=== PATIENT | female | born 2000 | race Caucasian/White ===

== ENCOUNTER 2019-02-16 22:08 | Emergency (ER) | payer OTHER ==
[~2019-02-16] VITALS: Ht 180.3 cm; Wt 113.4 kg
[~2019-02-16 22:08] MED LIST: ALBU0.0967 IH
[2019-02-16 22:22] VITALS: BP 151/77
[2019-02-16] MEDS ORDERED: AMOXIL/CLAVULANATE 875/125 MG 1 TAB PO ONE (23:05)
[2019-02-16] MEDS ORDERED: HYDROcodone/APAP 5/325 MG 1 TAB TAB PO ONE (23:10)
[2019-02-16] MEDS ORDERED: ONDANSETRON 4 MG ODT PO ONE (23:10)
[2019-02-16] MEDS ORDERED: AMOXIL/CLAVULANATE 875/125 MG 1 TAB ONE (23:36)
[2019-02-16 23:42] VITALS: BP 116/73
== END 2019-02-16 23:42 | disposition home or self-care (01) ==
LOC: MED 22:08
DX: L08.9 Local infection of the skin and subcutaneous tissue, unspecified (principal); J45.909 Unspecified asthma, uncomplicated; Z79.899 Other long term (current) drug therapy
CPT/HCPCS: 99284; Q0162

== ENCOUNTER 2020-05-26 18:30 | Emergency (ER) | payer OTHER ==
[~2020-05-26] VITALS: Ht 177.8 cm; Wt 113.4 kg
[2020-05-26 18:41] VITALS: BP 126/71
--- NOTE | 2020-05-26 18:47 | NUR ---
Boone peter in [facility] - 05/26/20 at 1847 by [id number] [id number]
--- NOTE | 2020-05-26 18:47 | NUR ---
PT AMB TO BED 9
[2020-05-26] MEDS ORDERED: ACETAMINOPHEN EXTRA STRENGTH 500 MG TAB PO ONE (18:50)
--- NOTE | 2020-05-26 18:56 | NUR ---
C/O FEVER, COUGH, SOB , BODY ACHES X 3 DAYS, N/V/D X 2 DAYS, LASS OF TASTE/SMELL X 1 WEEK. O2 SAT 96%, ORAL TEMP 102.9, P 119, R 26, BP 126/71 AT THIS TIME. PMH: ASTHMA
--- NOTE | 2020-05-26 19:20 | NUR ---
RECEIVED REPORT FOR TRAE ROYAL, FOR CONTINUATION OF CARE AT THIS TIME.
--- NOTE | 2020-05-26 19:20 | NUR ---
REPORT GIVEN TO FREDDY ROYAL, TRANSFER OF CARE AT THIS TIME.
--- NOTE | 2020-05-26 19:25 | NUR ---
JHOANA THIBODEAUX AT BEDSIDE FOR MEDICAL EVALUATION
[2020-05-26] MEDS ORDERED: KETOROLAC 30 MG/ML VIAL IVP ONE (19:30)
[2020-05-26] MEDS ORDERED: NACL 0.9% 1,000 ML IV ONE (19:30)
[2020-05-26] MEDS ORDERED: ONDANSETRON 4 MG/2 ML VIAL IVP ONE (19:30)
--- NOTE | 2020-05-26 19:30 | NUR ---
PT CONNECTED TO THE SALES AND SERVICE ADVISOR. SAO2@95% RA. PT IS SITTING UPRIGHT IN BED AND POSITIONED FOR COMFORT. BED IS LOCKED AND IN LOWEST POSITION. SIDE RAILSX1. PT IS NOT IN ANY ACUTE DISTRESS AT THIS TIME.
--- NOTE | 2020-05-26 19:49 | NUR ---
18G IV NITIATED IN THE LEFT AC. NS FLUIDS RUNNING AT 100 ML/HR PER ERMD ORDERS
--- NOTE | 2020-05-26 20:00 | NUR ---
PCR SWAB COLLECTED
--- NOTE | 2020-05-26 20:05 | NUR ---
PT PROVIDED WITH WATER PER REQUEST, TOLERATED WELL.
--- NOTE | 2020-05-26 21:00 | NUR ---
PT IS SITTING IN UPRIGHT POSITION. SIDE RAILSX1. BED IS LOCKED AND IN LOWEST POSITION. PT IS CONNECTED TO THE SPORTS MEDICINE PHYSICIAN. SAO2@96% RA. NO ACUTE DISTRESS NOTED. NO NEW ORDERS AT THIS TIME.
[2020-05-26 21:38] VITALS: BP 126/71
--- NOTE | 2020-05-26 21:38 | NUR ---
Patient discharged with v/s stable. Written and verbal after care instructions given and explained. Patient alert, oriented and verbalized understanding of instructions. Ambulatory with steady gait. All questions addressed prior to discharge. ID band removed. Patient advised to follow up with PMD. Rx of ZOFRAN, MOTRIN, ALBUTEROL given. Patient educated on indication of medication including possible reaction and side effects. Opportunity to ask questions provided and answered.
--- NOTE | 2020-05-27 13:40 | NUR ---
Covid results received from lab. Results = Positive. Hard copy requested from lab and placed in infection controls mailbox.
== END 2020-05-26 21:38 | disposition home or self-care (01) ==
LOC: MED 18:30
DX: U07.1 COVID-19 (principal); J45.909 Unspecified asthma, uncomplicated; Z79.899 Other long term (current) drug therapy
CPT/HCPCS: 96361; 96374; 96375; 99284; J1885; J2405; U0003; J7030

== ENCOUNTER 2020-09-16 02:21 | Emergency (ER) | payer SELFPAY ==
[~2020-09-16] VITALS: Ht 177.8 cm; Wt 97.5 kg
[2020-09-16 02:28] VITALS: BP 150/91
--- NOTE | 2020-09-16 02:34 | NUR ---
To ED bed 12.
--- NOTE | 2020-09-16 02:45 | NUR ---
19 Y/O FEMALE C/O VAGINAL PAIN FOR 1 WEEK. PT STATES 10/10 BURNING AND IRRITATION CONSTANT PAIN. PT STATES REDNESS AND WHITE YEAST IN THE VAGINAL AND RECTAL AREA. PT STATES SHE IS SEXUALLY ACTIVE. RX: TYLENOL WITH NO RELIEF MEDHX: ASTHMA NKA
--- NOTE | 2020-09-16 02:45 | NUR ---
URINE SAMPLE HANDED TO CPT BLAISE
[2020-09-16 03:02] LABS: APPEARANCE,URINE CLEAR (CLEAR); BILIRUBIN,URINE NEGATIVE (NEGATIVE); BLOOD, URINE 1+ (NEGATIVE); COLOR,URINE YELLOW (YELLOW); LEUKOCYTE ESTERASE ,URINE TRACE (NEGATIVE); NITRITE, URINE NEGATIVE (NEGATIVE); UGLUCOSE 3+ (NEGATIVE)
--- NOTE | 2020-09-16 03:11 | NUR ---
Dr. Travis examining patient.
--- NOTE | 2020-09-16 03:15 | NUR ---
Visual vaginal exam performed by DR BACA with Babatunde ROYAL at bedside for entire examination. Patient tolerated procedure well. Patient assisted to position of comfort after examination.
[2020-09-16 03:24] LABS: RBC,URINE 0-5 /HPF (0-5)
[2020-09-16] MEDS ORDERED: CEPH-588 PO ×2 (03:52→05:10)
[2020-09-16] MEDS ORDERED: FLUC100T6 PO ×2 (03:52→05:10)
[2020-09-16] MEDS ORDERED: cefTRIAXone 1,000 MG VIAL ONE (03:58)
[2020-09-16] MEDS ORDERED: LIDOCAINE MPF 1% 5 ML ONE (03:59)
[2020-09-16] MEDS ORDERED: cefTRIAXone 1,000 MG in LIDOCAINE MPF 1% 2.1 ML INJ SCH (04:00)
[2020-09-16] MEDS ORDERED: FLUCONAZOLE 100 MG TAB PO SCH (04:00)
[2020-09-16] MEDS ORDERED: IBUPROFEN 800 MG TAB PO SCH (04:00)
[2020-09-16] MEDS ORDERED: INSULIN REGULAR, HUMAN 100 UNIT/ML VIAL SUBQ ONE (04:15)
--- NOTE | 2020-09-16 04:30 | NUR ---
LAB AT BEDSIDE
[2020-09-16 04:42] LABS: BASOPHILS # (AUTO) 0.1 K/uL (0.00-0.22); BASOPHILS % (AUTO) 0.9 % (0.0-2.0); EOSINOPHILS # (AUTO) 0.1 K/uL (0-0.4); EOSINOPHILS % (AUTO) 1.7 % (0.0-4.0); HEMATOCRIT 35.9 % (36-48); HEMOGLOBIN 11.7 g/dL (12.0-16.0); LYMPHOCYTES # (AUTO) 2.4 K/uL (2.5-16.5); LYMPHOCYTES % (AUTO) 32.4 % (20.5-51.1); MEAN CORPUSCULAR HEMOGLOBIN 25 pg (27-31); MEAN CORPUSCULAR HGB CONC 33 g/dL (33-37); MEAN CORPUSCULAR VOLUME 76.6 fL (80-94); MONOCYTES # (AUTO) 0.5 K/uL (0.8-1.0); MONOCYTES % (AUTO) 7.4 % (1.7-9.3); NEUTROPHILS # (AUTO) 4.3 K/uL (1.8-7.7); NEUTROPHILS % (AUTO) 57.6 % (42.2-75.2); PLATELET COUNT (AUTO) 263 K/uL (140-450); RED BLOOD CELL COUNT(AUTO) 4.68 MIL/uL (4.20-5.40); RED CELL DISTRIBUTION WIDTH 16.3 % (11.6-13.7); WHITE BLOOD COUNT (AUTO) 7.4 K/uL (4.8-10.8)
[2020-09-16 04:58] LABS: ALBUMIN 3.8 g/dL (3.4-5.0); ANION GAP 14.4 (8-16); CARBON DIOXIDE 25.3 mmol/L (21-32); CREATININE 0.7 mg/dL (0.6-1.3); POTASSIUM 3.7 mmol/L (3.5-5.1); TOTAL BILIRUBIN 0.5 mg/dL (0.0-1.0)
[2020-09-16] MEDS ORDERED: METF500S6 PO (05:09)
[2020-09-16 05:22] VITALS: BP 150/91
--- NOTE | 2020-09-16 05:22 | NUR ---
Patient discharged with v/s stable. Written and verbal after care instructions given and explained. Patient alert, oriented and verbalized understanding of instructions. Ambulatory with steady gait. All questions addressed prior to discharge. ID band removed. Patient advised to follow up with PMD. Rx of KEFLEX, FLUCONAZOLE, AND METFORMIN given. Patient educated on indication of medication including possible reaction and side effects. Opportunity to ask questions provided and answered.
== END 2020-09-16 05:22 | disposition home or self-care (01) ==
LOC: MED 02:21
DX: B34.9 Viral infection, unspecified (principal); N39.0 Urinary tract infection, site not specified; J45.909 Unspecified asthma, uncomplicated; Z79.899 Other long term (current) drug therapy
CPT/HCPCS: 36415; 80053; 81001; 81025; 85025; 87086; 87491; 96372; 99284; J0696; J1815; J2001

== ENCOUNTER 2020-10-20 00:07 | Inpatient (IN) | payer MEDICAID ==
[~2020-10-20] VITALS: Ht 172.7 cm; Wt 121.6 kg
[2020-10-20] VITALS (16 sets, daily range): BP systolic 104–162; BP diastolic 37–115
[~2020-10-20 00:07] MED LIST changes: +CEPH-588 PO; +FLUC100T6 PO; +METF500S6 PO
[2020-10-20] MEDS ORDERED: KETOROLAC 30 MG/ML VIAL IVP ONE (00:20)
[2020-10-20] MEDS ORDERED: NACL 0.9% 1,000 ML IV ONE (00:20)
[2020-10-20] MEDS ORDERED: ONDANSETRON 4 MG/2 ML VIAL IVP ONE (00:20)
[2020-10-20 00:43] LABS: APPEARANCE,URINE CLEAR (CLEAR); BILIRUBIN,URINE 1+ (NEGATIVE); BLOOD, URINE 3+ (NEGATIVE); COLOR,URINE YELLOW (YELLOW); LEUKOCYTE ESTERASE ,URINE NEGATIVE (NEGATIVE); NITRITE, URINE NEGATIVE (NEGATIVE); PH,URINE 6.5 (5.0-9.0); UGLUCOSE 3+ (NEGATIVE)
[2020-10-20 00:44] LABS: HEMATOCRIT 36.4 % (36-48); HEMOGLOBIN 11.8 g/dL (12.0-16.0); MEAN CORPUSCULAR HEMOGLOBIN 25 pg (27-31); MEAN CORPUSCULAR HGB CONC 33 g/dL (33-37); PLATELET COUNT (AUTO) 346 K/uL (140-450); RED BLOOD CELL COUNT(AUTO) 4.73 MIL/uL (4.20-5.40); RED CELL DISTRIBUTION WIDTH 16.4 % (11.6-13.7); WHITE BLOOD COUNT (AUTO) 10.6 K/uL (4.8-10.8)
[2020-10-20 00:58] LABS: ALBUMIN 3.8 g/dL (3.4-5.0); ANION GAP 28.8 (8-16); CARBON DIOXIDE 11.3 mmol/L (21-32); CREATININE 0.9 mg/dL (0.6-1.3); POTASSIUM 3.1 mmol/L (3.5-5.1); TOTAL BILIRUBIN 0.6 mg/dL (0.0-1.0)
[2020-10-20 01:01] LABS: EOSINOPHILS % (MANUAL) 1 % (0-4); LYMPHOCYTES % (MANUAL) 15 % (20-46); MONOCYTES % (MANUAL) 5 % (5-12)
[2020-10-20 01:04] LABS: RBC,URINE 11-20 (MOD) /HPF (0-5)
[2020-10-20] MEDS ORDERED: POTASSIUM CHL 20 MEQ/NACL 0.9% 1,000 ML IV ONE (01:45)
[2020-10-20] MEDS ORDERED: INSULIN REGULAR, HUMAN 100 UNIT/ML VIAL IVP ONE (04:05)
[2020-10-20] MEDS ORDERED: DEXTROSE 50% 50 ML SYR IVP PRN ×4 (04:05→09:10)
[2020-10-20] MEDS ORDERED: BLOOD GLUCOSE MONITORING 1 DEV DEV FS SCH ×2 (04:05→06:15)
[2020-10-20] MEDS ORDERED: INSULIN REGULAR, HUMAN 100 UNIT in NACL 0.9% 100 ML IV SCH ×4 (04:05→05:30)
[2020-10-20] MEDS: BLOOD GLUCOSE MONITORING 1 DEV DEV FS SCH ×20 (06:41→23:10)
[2020-10-20] MEDS: INSULIN REGULAR, HUMAN 100 UNIT in NACL 0.9% 100 ML IV SCH ×2 (07:07)
[2020-10-20] MEDS: NACL 0.9% 1,000 ML IV SCH ×5 (08:00→23:41)
[2020-10-20] MEDS ORDERED: DOCUSATE SODIUM 100 MG GELCAP PO PRN (09:10)
[2020-10-20] MEDS ORDERED: POTASSIUM CHLORIDE 40 MEQ, LIDOCAINE MPF 1% 25 MG in NACL 0.9% 250 ML IV PRN (09:10)
[2020-10-20] MEDS ORDERED: ZOLPIDEM 5 MG TAB PO PRN (09:10)
[2020-10-20] MEDS ORDERED: guaiFENesin DM 200/20 MG-10 ML 10 ML UDC PO PRN (09:10)
[2020-10-20] MEDS ORDERED: HYDROcodone/APAP 7.5/325 MG 1 TAB PO PRN (09:10)
[2020-10-20] MEDS ORDERED: ACETAMINOPHEN 325 MG TAB PO PRN (09:10)
[2020-10-20] MEDS ORDERED: DEXT 5% / NACL 0.45% 1,000 ML IV SCH (09:10)
[2020-10-20 09:37] LABS: BARBITURATE, URINE NEGATIVE ng/ml (NEG <=200); BENZODIAZEPINE, URINE NEGATIVE ng/mL (NEG <=200); CANNABINOID, URINE NEGATIVE ng/mL (NEG <=50); COCAINE, URINE NEGATIVE ng/mL (NEG <=300); OPIATE, URINE NEGATIVE ng/mL (NEG <=2000); PHENCYCLIDINE SCREEN,URINE NEGATIVE ng/mL (NEG <=25)
[2020-10-20] MEDS: lisinopriL 10 MG TAB PO SCH (10:50)
[2020-10-20] MEDS ORDERED: cephALEXin 500 MG CAP PO SCH (12:00)
[2020-10-20 12:59] LABS: MAGNESIUM 2.1 mg/dL (1.8-2.4); PHOSPHORUS 6.5 mg/dL (2.5-4.9)
[2020-10-20 13:10] LABS: PROTHROMBIN TIME 15.2 secs (10.8-13.4)
[2020-10-20 13:19] LABS: CHOL/HDL RATIO 3.5 (1-4.5); FREE T4 (FREE THYROXINE) 0.91 ng/dL (0.76-1.46); THYROID STIMULATING HORMONE 4.84 uIU/mL (0.34-3.74)
[2020-10-20] MEDS ORDERED: NITROGLYCERIN 0.4 MG TAB SL PRN (14:05)
[2020-10-20 15:19] LABS: ANION GAP 17.9 (8-16); CARBON DIOXIDE 14.8 mmol/L (21-32); CREATININE 0.7 mg/dL (0.6-1.3)
[2020-10-20 15:21] LABS: POTASSIUM 2.7 mmol/L (3.5-5.1)
[2020-10-20] MEDS: POTASSIUM CHLORIDE 40 MEQ, LIDOCAINE MPF 1% 25 MG in NACL 0.9% 250 ML IV PRN (15:26)
[2020-10-20 16:41] LABS: MAGNESIUM 1.8 mg/dL (1.8-2.4); PHOSPHORUS 1.5 mg/dL (2.5-4.9)
[2020-10-20] MEDS: ATORVASTATIN 20 MG TAB PO SCH (17:25)
[2020-10-20] MEDS: ONDANSETRON 4 MG/2 ML VIAL IM/IVP PRN (17:26)
[2020-10-20 19:02] LABS: URINE TOTAL PROTEIN 128.2 mg/dL (0-12)
[2020-10-20] MEDS: METOPROLOL 25 MG TAB PO SCH (20:54)
[2020-10-20 21:52] LABS: MAGNESIUM 1.7 mg/dL (1.8-2.4); PHOSPHORUS 1.8 mg/dL (2.5-4.9)
[2020-10-20 21:53] LABS: ALBUMIN 3.1 g/dL (3.4-5.0); ANION GAP 24.4 (8-16); CARBON DIOXIDE 16.7 mmol/L (21-32); CREATININE 0.7 mg/dL (0.6-1.3); POTASSIUM 3.1 mmol/L (3.5-5.1); TOTAL BILIRUBIN 0.4 mg/dL (0.0-1.0)
[2020-10-21] VITALS (17 sets, daily range): BP systolic 95–139; BP diastolic 41–78
[2020-10-21] MEDS: BLOOD GLUCOSE MONITORING 1 DEV DEV FS SCH ×13 (00:10→21:24)
[2020-10-21] MEDS: POTASSIUM CHLORIDE 40 MEQ, LIDOCAINE MPF 1% 25 MG in NACL 0.9% 250 ML IV PRN ×2 (00:16→09:10)
[2020-10-21] MEDS: MAGNESIUM OXIDE 400 MG TAB PO SCH ×2 (00:28→08:22)
[2020-10-21 00:39] LABS: MAGNESIUM 1.7 mg/dL (1.8-2.4); PHOSPHORUS 1.4 mg/dL (2.5-4.9)
[2020-10-21] MEDS: NACL 0.9% 1,000 ML IV SCH ×4 (04:20→19:28)
[2020-10-21 05:32] LABS: BASOPHILS # (AUTO) 0.1 K/uL (0.00-0.22); EOSINOPHILS # (AUTO) 0.1 K/uL (0-0.4); EOSINOPHILS % (AUTO) 1.4 % (0.0-4.0); HEMATOCRIT 32.7 % (36-48); HEMOGLOBIN 10.6 g/dL (12.0-16.0); LYMPHOCYTES # (AUTO) 1.9 K/uL (2.5-16.5); LYMPHOCYTES % (AUTO) 26.7 % (20.5-51.1); MEAN CORPUSCULAR HEMOGLOBIN 25 pg (27-31); MEAN CORPUSCULAR HGB CONC 32 g/dL (33-37); MEAN CORPUSCULAR VOLUME 76.7 fL (80-94); MONOCYTES # (AUTO) 0.7 K/uL (0.8-1.0); MONOCYTES % (AUTO) 9.8 % (1.7-9.3); NEUTROPHILS # (AUTO) 4.3 K/uL (1.8-7.7); NEUTROPHILS % (AUTO) 61.1 % (42.2-75.2); PLATELET COUNT (AUTO) 322 K/uL (140-450); RED BLOOD CELL COUNT(AUTO) 4.26 MIL/uL (4.20-5.40); WHITE BLOOD COUNT (AUTO) 7.1 K/uL (4.8-10.8)
[2020-10-21 05:57] LABS: MAGNESIUM 1.9 mg/dL (1.8-2.4); PHOSPHORUS 1.2 mg/dL (2.5-4.9)
[2020-10-21 06:05] LABS: ANION GAP 16.2 (8-16); CARBON DIOXIDE 18.8 mmol/L (21-32); CREATININE 0.7 mg/dL (0.6-1.3); TOTAL BILIRUBIN 0.4 mg/dL (0.0-1.0)
[2020-10-21] MEDS: INSULIN REGULAR, HUMAN 100 UNIT in NACL 0.9% 100 ML IV SCH ×2 (06:06)
[2020-10-21 06:09] LABS: ALBUMIN 3.3 g/dL (3.4-5.0)
[2020-10-21 08:06] LABS: T4 (THYROXINE) 8.9 ug/dL (4.5-12.0)
[2020-10-21 08:13] LABS: BASOPHILS % (AUTO) 0.6 % (0.0-2.0); EOSINOPHILS # (AUTO) 0.1 K/uL (0-0.4); EOSINOPHILS % (AUTO) 1.4 % (0.0-4.0); HEMATOCRIT 34.1 % (36-48); HEMOGLOBIN 11.1 g/dL (12.0-16.0); LYMPHOCYTES # (AUTO) 1.5 K/uL (2.5-16.5); LYMPHOCYTES % (AUTO) 20.9 % (20.5-51.1); MEAN CORPUSCULAR HEMOGLOBIN 25 pg (27-31); MEAN CORPUSCULAR HGB CONC 33 g/dL (33-37); MEAN CORPUSCULAR VOLUME 77.1 fL (80-94); MONOCYTES # (AUTO) 0.8 K/uL (0.8-1.0); NEUTROPHILS # (AUTO) 4.7 K/uL (1.8-7.7); RED BLOOD CELL COUNT(AUTO) 4.42 MIL/uL (4.20-5.40); RED CELL DISTRIBUTION WIDTH 16.4 % (11.6-13.7); WHITE BLOOD COUNT (AUTO) 7.1 K/uL (4.8-10.8)
[2020-10-21 08:14] LABS: MAGNESIUM 1.8 mg/dL (1.8-2.4)
[2020-10-21] MEDS: ECOTRIN 81 MG TABEC PO SCH (08:22)
[2020-10-21] MEDS: PANTOPRAZOLE 40 MG INJ VIAL IVP SCH (08:22)
[2020-10-21] MEDS: METOPROLOL 25 MG TAB PO SCH ×2 (08:22→21:29)
[2020-10-21] MEDS: lisinopriL 10 MG TAB PO SCH (08:23)
[2020-10-21 08:41] LABS: PHOSPHORUS 1.1 mg/dL (2.5-4.9)
[2020-10-21 08:58] LABS: ANION GAP 13.7 (8-16); POTASSIUM 2.7 mmol/L (3.5-5.1)
[2020-10-21 08:59] LABS: CREATININE 0.7 mg/dL (0.6-1.3); TOTAL BILIRUBIN 0.4 mg/dL (0.0-1.0)
[2020-10-21 09:00] LABS: ALBUMIN 3.1 g/dL (3.4-5.0)
[2020-10-21 09:03] LABS: MONOCYTES % (AUTO) 11.1 % (1.7-9.3); PLATELET COUNT (AUTO) 253 K/uL (140-450)
[2020-10-21] MEDS ORDERED: DEXTROSE 50% 50 ML SYR IVP PRN (09:15)
[2020-10-21] MEDS ORDERED: MAGNESIUM OXIDE 400 MG TAB PO SCH (09:47)
[2020-10-21] MEDS: metFORMIN 500 MG TAB PO SCH ×2 (09:49→16:31)
[2020-10-21] MEDS: glipiZIDE 10 MG TAB PO SCH (09:50)
[2020-10-21] MEDS: INSULIN LANTUS 100 UNITS/ML 10 ML VIAL SUBQ SCH (09:59)
[2020-10-21] MEDS ORDERED: MAG SULF 2000 MG/WATER PREMIX 50 ML IV SCH (10:00)
[2020-10-21] MEDS: INSULIN LISPRO SLIDING SCALE 100 UNITS/ML VIAL SUBQ PRN ×3 (11:51→21:26)
[2020-10-21] MEDS: ATORVASTATIN 20 MG TAB PO SCH (16:31)
[2020-10-21 18:59] LABS: BASOPHILS # (AUTO) 0.1 K/uL (0.00-0.22); EOSINOPHILS # (AUTO) 0.1 K/uL (0-0.4); EOSINOPHILS % (AUTO) 1.6 % (0.0-4.0); HEMATOCRIT 33.8 % (36-48); HEMOGLOBIN 11.2 g/dL (12.0-16.0); LYMPHOCYTES # (AUTO) 1.3 K/uL (2.5-16.5); LYMPHOCYTES % (AUTO) 23.8 % (20.5-51.1); MEAN CORPUSCULAR HEMOGLOBIN 25 pg (27-31); MEAN CORPUSCULAR HGB CONC 33 g/dL (33-37); MEAN CORPUSCULAR VOLUME 75.8 fL (80-94); MONOCYTES # (AUTO) 0.5 K/uL (0.8-1.0); MONOCYTES % (AUTO) 9.5 % (1.7-9.3); NEUTROPHILS # (AUTO) 3.5 K/uL (1.8-7.7); NEUTROPHILS % (AUTO) 64.1 % (42.2-75.2); PLATELET COUNT (AUTO) 303 K/uL (140-450); RED BLOOD CELL COUNT(AUTO) 4.47 MIL/uL (4.20-5.40); RED CELL DISTRIBUTION WIDTH 16.6 % (11.6-13.7); WHITE BLOOD COUNT (AUTO) 5.5 K/uL (4.8-10.8)
[2020-10-22] VITALS: BP 105/58
[2020-10-22 04:00] VITALS: BP 52/58
[2020-10-22 05:18] LABS: BASOPHILS # (AUTO) 0.1 K/uL (0.00-0.22); BASOPHILS % (AUTO) 1.1 % (0.0-2.0); EOSINOPHILS # (AUTO) 0.1 K/uL (0-0.4); EOSINOPHILS % (AUTO) 1.7 % (0.0-4.0); HEMATOCRIT 31.9 % (36-48); HEMOGLOBIN 10.5 g/dL (12.0-16.0); LYMPHOCYTES # (AUTO) 1.5 K/uL (2.5-16.5); LYMPHOCYTES % (AUTO) 25.9 % (20.5-51.1); MEAN CORPUSCULAR HEMOGLOBIN 25 pg (27-31); MEAN CORPUSCULAR HGB CONC 33 g/dL (33-37); MEAN CORPUSCULAR VOLUME 76.3 fL (80-94); MONOCYTES # (AUTO) 0.6 K/uL (0.8-1.0); MONOCYTES % (AUTO) 9.5 % (1.7-9.3); NEUTROPHILS # (AUTO) 3.7 K/uL (1.8-7.7); NEUTROPHILS % (AUTO) 61.8 % (42.2-75.2); PLATELET COUNT (AUTO) 279 K/uL (140-450); RED BLOOD CELL COUNT(AUTO) 4.18 MIL/uL (4.20-5.40); RED CELL DISTRIBUTION WIDTH 16.1 % (11.6-13.7); WHITE BLOOD COUNT (AUTO) 5.9 K/uL (4.8-10.8)
[2020-10-22] MEDS: NACL 0.9% 1,000 ML IV SCH ×2 (05:28→16:17)
[2020-10-22] MEDS: BLOOD GLUCOSE MONITORING 1 DEV DEV FS SCH ×4 (06:01→21:29)
[2020-10-22] MEDS: INSULIN LISPRO SLIDING SCALE 100 UNITS/ML VIAL SUBQ PRN ×4 (06:02→21:32)
[2020-10-22] MEDS: glipiZIDE 10 MG TAB PO SCH (06:03)
[2020-10-22 06:52] LABS: ALBUMIN 3.1 g/dL (3.4-5.0); CARBON DIOXIDE 21.6 mmol/L (21-32); CREATININE 0.6 mg/dL (0.6-1.3); TOTAL BILIRUBIN 0.5 mg/dL (0.0-1.0)
[2020-10-22 06:57] LABS: POTASSIUM 2.6 mmol/L (3.5-5.1)
[2020-10-22 08:00] VITALS: BP 118/61
[2020-10-22] MEDS ORDERED: POTASSIUM CHLORIDE 10 MEQ TABER PO SCH (08:14)
[2020-10-22] MEDS ORDERED: CRUSHER, PILL MC ONE (08:30)
[2020-10-22] MEDS: metFORMIN 500 MG TAB PO SCH ×2 (08:35→17:10)
[2020-10-22] MEDS: ECOTRIN 81 MG TABEC PO SCH (08:35)
[2020-10-22] MEDS: MAGNESIUM OXIDE 400 MG TAB PO SCH (08:36)
[2020-10-22] MEDS: PANTOPRAZOLE 40 MG INJ VIAL IVP SCH (08:36)
[2020-10-22] MEDS: METOPROLOL 25 MG TAB PO SCH ×2 (08:38→21:29)
[2020-10-22] MEDS: lisinopriL 10 MG TAB PO SCH (08:38)
[2020-10-22] MEDS: INSULIN LANTUS 100 UNITS/ML 10 ML VIAL SUBQ SCH (08:44)
[2020-10-22] MEDS: ONDANSETRON 4 MG/2 ML VIAL IM/IVP PRN (11:48)
[2020-10-22 12:00] VITALS: BP 102/50
[2020-10-22 16:00] VITALS: BP 120/61
[2020-10-22 16:11] LABS: ANION GAP 17.3 (8-16); CARBON DIOXIDE 21.6 mmol/L (21-32); CREATININE 0.5 mg/dL (0.6-1.3)
[2020-10-22 16:12] LABS: POTASSIUM 2.9 mmol/L (3.5-5.1)
[2020-10-22] MEDS ORDERED: POTASSIUM PHOSPHATE 15 MM in NACL 0.9% 250 ML IV SCH (17:00)
[2020-10-22] MEDS: ATORVASTATIN 20 MG TAB PO SCH (17:11)
[2020-10-22 20:00] VITALS: BP 151/71
[2020-10-23] VITALS: BP 104/58
[2020-10-23] MEDS: NACL 0.9% 1,000 ML IV SCH ×3 (01:28→21:28)
[2020-10-23 04:00] VITALS: BP 130/62
[2020-10-23 05:10] LABS: BASOPHILS # (AUTO) 0.1 K/uL (0.00-0.22); EOSINOPHILS # (AUTO) 0.1 K/uL (0-0.4); EOSINOPHILS % (AUTO) 2.2 % (0.0-4.0); HEMATOCRIT 31.7 % (36-48); HEMOGLOBIN 10.6 g/dL (12.0-16.0); LYMPHOCYTES # (AUTO) 1.7 K/uL (2.5-16.5); LYMPHOCYTES % (AUTO) 31.5 % (20.5-51.1); MEAN CORPUSCULAR HEMOGLOBIN 25 pg (27-31); MEAN CORPUSCULAR HGB CONC 34 g/dL (33-37); MEAN CORPUSCULAR VOLUME 75.7 fL (80-94); MONOCYTES # (AUTO) 0.6 K/uL (0.8-1.0); MONOCYTES % (AUTO) 11.3 % (1.7-9.3); NEUTROPHILS # (AUTO) 2.9 K/uL (1.8-7.7); PLATELET COUNT (AUTO) 280 K/uL (140-450); RED BLOOD CELL COUNT(AUTO) 4.18 MIL/uL (4.20-5.40); RED CELL DISTRIBUTION WIDTH 16.6 % (11.6-13.7); WHITE BLOOD COUNT (AUTO) 5.3 K/uL (4.8-10.8)
[2020-10-23 05:34] LABS: ALBUMIN 3.1 g/dL (3.4-5.0); ANION GAP 11.8 (8-16); CARBON DIOXIDE 26.7 mmol/L (21-32); CREATININE 0.6 mg/dL (0.6-1.3); TOTAL BILIRUBIN 0.5 mg/dL (0.0-1.0)
[2020-10-23] MEDS: glipiZIDE 10 MG TAB PO SCH (06:03)
[2020-10-23 06:06] LABS: POTASSIUM 2.5 mmol/L (3.5-5.1)
[2020-10-23] MEDS: INSULIN LISPRO SLIDING SCALE 100 UNITS/ML VIAL SUBQ PRN ×4 (06:18→20:42)
[2020-10-23] MEDS ORDERED: KCL 20 MEQ/WATER INJ PREMIX 200 ML IV ONE (06:25)
[2020-10-23] MEDS ORDERED: POTASSIUM CHLORIDE 10 MEQ TABER PO ONE (06:25)
[2020-10-23] MEDS: BLOOD GLUCOSE MONITORING 1 DEV DEV FS SCH ×4 (07:46→20:40)
[2020-10-23 08:00] VITALS: BP 140/80
[2020-10-23] MEDS: metFORMIN 500 MG TAB PO SCH ×2 (08:00→17:00)
[2020-10-23] MEDS ORDERED: POTASSIUM CHLORIDE 10 MEQ TABER PO SCH ×3 (08:40→19:50)
[2020-10-23] MEDS: METOPROLOL 25 MG TAB PO SCH ×2 (09:00→20:37)
[2020-10-23] MEDS: INSULIN LANTUS 100 UNITS/ML 10 ML VIAL SUBQ SCH (09:00)
[2020-10-23] MEDS: lisinopriL 10 MG TAB PO SCH (09:00)
[2020-10-23] MEDS: PANTOPRAZOLE 40 MG INJ VIAL IVP SCH (09:00)
[2020-10-23] MEDS: ECOTRIN 81 MG TABEC PO SCH (09:00)
[2020-10-23] MEDS: MAGNESIUM OXIDE 400 MG TAB PO SCH (09:00)
[2020-10-23 12:00] VITALS: BP 129/97
[2020-10-23] MEDS ORDERED: POTASSIUM CHLORIDE 40 MEQ, LIDOCAINE MPF 1% 25 MG in NACL 0.9% 250 ML IV SCH (13:30)
[2020-10-23 14:09] LABS: ANION GAP 16.9 (8-16); CARBON DIOXIDE 23.2 mmol/L (21-32); CREATININE 0.8 mg/dL (0.6-1.3); POTASSIUM 3.1 mmol/L (3.5-5.1)
[2020-10-23 16:00] VITALS: BP 116/58
[2020-10-23] MEDS: ATORVASTATIN 20 MG TAB PO SCH (17:00)
[2020-10-23 20:00] VITALS: BP 116/62
[2020-10-23 23:08] LABS: APPEARANCE,URINE CLEAR (CLEAR); BILIRUBIN,URINE NEGATIVE (NEGATIVE); BLOOD, URINE TRACE-I (NEGATIVE); COLOR,URINE YELLOW (YELLOW); LEUKOCYTE ESTERASE ,URINE TRACE (NEGATIVE); NITRITE, URINE NEGATIVE (NEGATIVE); UGLUCOSE 3+ (NEGATIVE)
[2020-10-23 23:10] LABS: RBC,URINE 0-5 /HPF (0-5)
[2020-10-24] VITALS: BP 118/59
[2020-10-24] MEDS: NACL 0.9% 1,000 ML IV SCH ×2 (02:54→07:28)
[2020-10-24 04:00] VITALS: BP 129/72
[2020-10-24 05:38] LABS: BASOPHILS % (AUTO) 0.9 % (0.0-2.0); EOSINOPHILS # (AUTO) 0.1 K/uL (0-0.4); HEMOGLOBIN 10.3 g/dL (12.0-16.0); LYMPHOCYTES # (AUTO) 2.2 K/uL (2.5-16.5); LYMPHOCYTES % (AUTO) 44.6 % (20.5-51.1); MEAN CORPUSCULAR HEMOGLOBIN 26 pg (27-31); MEAN CORPUSCULAR HGB CONC 33 g/dL (33-37); MEAN CORPUSCULAR VOLUME 77.2 fL (80-94); MONOCYTES # (AUTO) 0.6 K/uL (0.8-1.0); MONOCYTES % (AUTO) 13.4 % (1.7-9.3); NEUTROPHILS # (AUTO) 1.9 K/uL (1.8-7.7); NEUTROPHILS % (AUTO) 39.1 % (42.2-75.2); PLATELET COUNT (AUTO) 304 K/uL (140-450); RED BLOOD CELL COUNT(AUTO) 4.02 MIL/uL (4.20-5.40); RED CELL DISTRIBUTION WIDTH 17.3 % (11.6-13.7); WHITE BLOOD COUNT (AUTO) 4.8 K/uL (4.8-10.8)
[2020-10-24 06:09] LABS: MAGNESIUM 1.7 mg/dL (1.8-2.4); PHOSPHORUS 2.5 mg/dL (2.5-4.9)
[2020-10-24 06:12] LABS: ALBUMIN 2.8 g/dL (3.4-5.0); ANION GAP 18.3 (8-16); CARBON DIOXIDE 27.8 mmol/L (21-32); CREATININE 0.5 mg/dL (0.6-1.3); POTASSIUM 3.1 mmol/L (3.5-5.1); TOTAL BILIRUBIN 0.4 mg/dL (0.0-1.0)
[2020-10-24] MEDS: glipiZIDE 10 MG TAB PO SCH (06:33)
[2020-10-24] MEDS: BLOOD GLUCOSE MONITORING 1 DEV DEV FS SCH (06:34)
[2020-10-24 08:00] VITALS: BP 144/75
[2020-10-24] MEDS: ECOTRIN 81 MG TABEC PO SCH (09:01)
[2020-10-24] MEDS: METOPROLOL 25 MG TAB PO SCH (09:01)
[2020-10-24] MEDS: metFORMIN 500 MG TAB PO SCH (09:01)
[2020-10-24] MEDS: lisinopriL 10 MG TAB PO SCH (09:01)
[2020-10-24] MEDS: PANTOPRAZOLE 40 MG INJ VIAL IVP SCH (09:02)
[2020-10-24] MEDS: MAGNESIUM OXIDE 400 MG TAB PO SCH (09:02)
[2020-10-24] MEDS: INSULIN LANTUS 100 UNITS/ML 10 ML VIAL SUBQ SCH (09:05)
[2020-10-24] MEDS ORDERED: METF1000 PO (09:29)
[2020-10-24] MEDS ORDERED: GLIP10TA3 PO (09:29)
[2020-10-24] MEDS ORDERED: FERR325E14 PO (09:47)
[2020-10-24] MEDS ORDERED: MAGN241.1 PO (09:47)
[2020-10-24] MEDS ORDERED: POTA10TE30 PO (09:47)
[2020-10-24] MEDS ORDERED: CEPH250C16 PO (09:47)
[2020-10-24] MEDS ORDERED: LANTUS SC (09:47)
[2020-10-24] MEDS ORDERED: POTASSIUM CHLORIDE 10 MEQ TABER PO SCH (11:00)
== END 2020-10-24 11:25 | disposition home or self-care (01) | DRG 420 ==
LOC: MED 00:07 → MMU 03:31 → MIC 06:33 → MTU 10-21 16:56
PROVIDERS: ADMIT Family Medicine; ATTEND Family Medicine
DX: E11.10 Type 2 diabetes mellitus with ketoacidosis without coma (principal); J96.00 Acute respiratory failure, unspecified whether with hypoxia or hypercapnia; E87.1 Hypo-osmolality and hyponatremia; E87.6 Hypokalemia; N39.0 Urinary tract infection, site not specified; E86.0 Dehydration; R74.01 Elevation of levels of liver transaminase levels; Z20.822 Contact with and (suspected) exposure to COVID-19; J45.909 Unspecified asthma, uncomplicated; K76.0 Fatty (change of) liver, not elsewhere classified; N04.9 Nephrotic syndrome with unspecified morphologic changes; E66.01 Morbid (severe) obesity due to excess calories; E87.0 Hyperosmolality and hypernatremia; E44.0 Moderate protein-calorie malnutrition; Z83.3 Family history of diabetes mellitus; Z68.41 Body mass index [BMI] 40.0-44.9, adult
CPT/HCPCS: 36415; 36600; 71045; 76705; 80048; 80053; 80305; 81001; 82150; 82570; 82803; 82948; 83036; 83690; 83735; 83880; 84100; 84436; 84439; 84443; 84479; 84484; 85025; 85610; 85730; 87081; 87086; 93005; 96361; 96374; 96375; 99291; C9113; J0696; J1644; J1815; J1885; J2001; J2405; J3475; J3480; J7030; J7060

== ENCOUNTER 2021-02-11 15:10 | Emergency (ER) | payer SELFPAY ==
[~2021-02-11] VITALS: Ht 175.3 cm; Wt 129.3 kg
[~2021-02-11 15:10] MED LIST changes: -ALBU0.0967 IH; -CEPH-588 PO; +CEPH250C16 PO; +FERR325E14 PO; -FLUC100T6 PO; +GLIP10TA3 PO; +LANTUS SC; +MAGN241.1 PO; +METF1000 PO; -METF500S6 PO; +POTA10TE30 PO
--- NOTE | 2021-02-11 17:05 | NUR ---
Pt ambulated to bed 08.
--- NOTE | 2021-02-11 17:07 | NUR ---
20 Y/O F BIB SPOUSE FROM HOME, C/O R FOOT 2ND DIGIT PAIN WITH FEVERS. UPON ASSESSMENT, DIGIT IS VISIBLY SWOLLEN AND RED. PT STATES SHE WAS CUTTING HER TOENAILS AND HAD AN INGROWN. PMH: PREDIABETES NKA
[2021-02-11] MEDS ORDERED: LIDOCAINE MPF 1% 10 MG/ML VIAL INJ ONE (17:10)
[2021-02-11] MEDS ORDERED: BACITRACIN OINT 500 UNITS/GM PKT TP ONE (17:10)
[2021-02-11] MEDS ORDERED: IBUPROFEN 800 MG TAB PO ONE (17:10)
[2021-02-11] MEDS ORDERED: CEPH500C16 PO (17:25)
[2021-02-11] MEDS ORDERED: NAPR-54 PO (17:25)
--- NOTE | 2021-02-11 17:48 | NUR ---
Patient discharged with v/s stable. Written and verbal after care instructions given and explained. Patient alert, oriented and verbalized understanding of instructions. Ambulatory with steady gait. All questions addressed prior to discharge. ID band removed. Patient advised to follow up with PMD. Rx of KEFLEX, AND NAPROXEN given. Patient educated on indication of medication including possible reaction and side effects. Opportunity to ask questions provided and answered.
== END 2021-02-11 17:48 | disposition home or self-care (01) ==
LOC: MED 15:10
DX: L60.0 Ingrowing nail (principal); Z20.822 Contact with and (suspected) exposure to COVID-19; J45.909 Unspecified asthma, uncomplicated; E11.9 Type 2 diabetes mellitus without complications; Z79.1 Long term (current) use of non-steroidal anti-inflammatories (NSAID); Z79.2 Long term (current) use of antibiotics; Z79.899 Other long term (current) drug therapy; Z79.4 Long term (current) use of insulin
CPT/HCPCS: 11730; 99284; J2001; U0003

== ENCOUNTER 2021-12-23 22:07 | Emergency (ER) | payer SELFPAY ==
[~2021-12-23] VITALS: Ht 175.3 cm; Wt 102.1 kg
[~2021-12-23 22:07] MED LIST changes: +CEPH500C16 PO; +METF-1274 PO; -METF1000 PO; +NAPR-54 PO; +POTA10TA70 PO; -POTA10TE30 PO
[2021-12-23 22:35] VITALS: BP 124/87
--- NOTE | 2021-12-23 22:38 | NUR ---
TO LOBBY A/W BED AMBULATORY
[2021-12-23] MEDS ORDERED: diphenhydrAMINE 50 MG/ML VIAL IM ONE (23:50)
--- NOTE | 2021-12-24 00:12 | NUR ---
21 y/o f bib self for lower lip swelling x 2129. pt states pain but it subsided. pt came straight here no meds given . pt denies n/v/f/d/cough.
[2021-12-24] MEDS ORDERED: EPIN1KIT31 IM (00:50)
[2021-12-24] MEDS ORDERED: DIPH25TA53 PO (00:50)
[2021-12-24] MEDS ORDERED: PRED20TA5 PO (00:50)
[2021-12-24 01:00] VITALS: BP 124/87
--- NOTE | 2021-12-24 01:00 | NUR ---
Patient discharged with v/s stable. Written and verbal after care instructions given and explained. Patient alert, oriented and verbalized understanding of instructions. Ambulatory with steady gait. All questions addressed prior to discharge. ID band removed. Patient advised to follow up with PMD. Rx of BENADRYL, EPIPEN, PREDNISONE given. Opportunity to ask questions provided and answered.
== END 2021-12-24 01:00 | disposition home or self-care (01) ==
LOC: MED 22:07
DX: T78.49XA Other allergy, initial encounter (principal); E11.9 Type 2 diabetes mellitus without complications; Z79.899 Other long term (current) drug therapy; Z79.2 Long term (current) use of antibiotics; Z79.1 Long term (current) use of non-steroidal anti-inflammatories (NSAID); Z79.4 Long term (current) use of insulin; X58.XXXA Exposure to other specified factors, initial encounter
CPT/HCPCS: 96372; 99283; J1200